=== PATIENT | male | born 1965 | race Hispanic/Latino ===

== ENCOUNTER → 2024-06-15 | Outpatient (CLI) | payer MEDICARE | END | disposition home or self-care (01) | LOC: RAH 11:52 | PROVIDERS: ATTEND Physical Medicine & Rehabilitation | DX: M48.02 Spinal stenosis, cervical region (principal); M43.22 Fusion of spine, cervical region; G82.50 Quadriplegia, unspecified; G95.0 Syringomyelia and syringobulbia | CPT/HCPCS: 72141 ==